=== PATIENT | male | born 1940 | race Caucasian/White ===

== ENCOUNTER 2017-07-27 07:56 | Emergency (ER) | payer MEDICARE, OTHER ==
[~2017-07-27] VITALS: Ht 170.2 cm; Wt 95.3 kg
[2017-07-27] MEDS ORDERED: HYDROMORPHONE 1MG/1ML INJ IM STA (08:34)
[2017-07-27] MEDS ORDERED: ONDANSETRON HCL 4 MG ORAL DISINTEGRATING TAB PO ONE ×2 (08:45→09:30)
[2017-07-27] MEDS ORDERED: CLONIDINE HCL 0.2 MG TAB PO ONE (08:45)
[2017-07-27] MEDS ORDERED: INDOMETHACIN 75 MG CAPCR PO SCH (09:00)
--- NOTE | 2017-07-27 09:03 | Diagnostic Imaging Report ---
PROCEDURE:X-RAY RIGHT FOOT, COMPLETE COMPARISON:None. INDICATIONS:RIGHT FOOT PAIN FINDINGS: No acute, displaced fracture or dislocation. Slight deformities of the second and third metatarsal diaphyses likely reflect sequela of remote trauma. Appropriate alignment between the medial cuneiform and second metatarsal base in keeping with an intact Lisfranc ligament. The joint spaces are well-maintained. Minimal degenerative posterior calcaneal spur. No focal soft tissue abnormalities. CONCLUSION: No acute osseous abnormality. Dictated by: Alexandro Owens M.D. on 07/27/2017 at 9:03 Electronically approved by: Alexandro Owens M.D. on 07/27/2017 at 9:03
[2017-07-27 10:49] VITALS: BP_SYST 176
== END 2017-07-27 11:08 | disposition home or self-care (01) ==
LOC: ER 07:56
DX: M10.9 Gout, unspecified (principal); I10 Essential (primary) hypertension; I25.10 Atherosclerotic heart disease of native coronary artery without angina pectoris; I25.2 Old myocardial infarction; Z98.61 Coronary angioplasty status; Z95.810 Presence of automatic (implantable) cardiac defibrillator
CPT/HCPCS: 73630; 99283; J1170

== ENCOUNTER → 2017-08-25 | Day surgery (SDC) | payer MEDICARE, OTHER ==
[~2017-08-25] MED LIST: AMLODIPINE BESY10 MG PO; ASPIRIN81 MG PO; ATENOLOL50 MG PO; BUMETANIDE1 MG PO; CLONIDINE HCL0.2 MG PO; CLOPIDOGREL75 MG PO; ETODOLAC500 M1 PO; HYDRALAZINE HCL25 MG PO; LIDOCAINE HCL 1% 2 ML AMP ONE; MIDAZOLAM HCL 2 MG/2 ML VIAL ONE; MIRALAX17 GM PO; NITRO PATCH TOP; OMEPRAZOLE40 MG PO; PROPOFOL IV EMULSION 10 MG/ML 50 ML VIAL ONE; ZOLPIDEM TARTRA10 MG PO
--- OUTSIDE RECORDS SUMMARY | 2017-08-25 11:31 | XMS REPORT | Continuity of Care Document ---
Author Author [facility] Organization [facility] Address [address] [place] [place] [address] Phone Unavailable Care Team Providers Care Printer Slotter Helper Name Role Phone LUPE ARRIETA DO PCP Insurance Providers Guarantor Gabe Sylvester Address [address] [place] [address] Email NONE Payer [facility] Policy Number [id number] Subscriber's Name Gabe Sylvester Relationship 18 Self / Same As Patient Group Name RETIRED Advance Directives Directive Response Recorded Date/Time Does the patient have an advance directive? No 03/11/17 8:53am If yes, is advance directive on file with [facility]? No 03/11/17 8:53am If not on file with [facility] will patient provide a copy? No 03/11/17 8:53am Do you have a Directive to Physician? No 07/27/17 9:31am Do you have a Medical Power of Mill Stenciler? No 07/27/17 9:31am Do you have an out of hospital Do Not Resuscitate Order? No 07/27/17 9:31am Do you have any special needs we should be aware of? No 07/27/17 9:31am Do you have a support person here with you today? No 07/27/17 9:31am Did patient receive Notice of Privacy Practices? Yes 07/27/17 9:31am Did patient receive patient rights and responsibilities? Yes 07/27/17 9:31am Problems No problem information available. Medications No medication information available. Social History Smoking Status Start Date Stop Date Never Smoker Hospital Discharge Instructions No hospital discharge instruction information available. Plan of Care Discharge Date 07/27/17 11:08am Disposition HOME, SELF-CARE Condition at Discharge Stable Instructions/Education Provided Dependent Edema Gout Forms Provided Work/School Excuse Prescriptions See Medication Section Referrals LUPE ARRIETA DO Address: [address] [place] [address] ZACKERY DE LUNA DO Address: [address] [place] [address] KELVIN MAXWELL MD Address: [address] [place] [address] Additional Instructions/Education FOLLOW UP WITH YOUR PCP SOON POSSIBLE RESUME ACTIVITY TOLERATED TAKE MEDICATIONS PRESCRIBED: INDOCIN 75 MG, BY MOUTH, TWICE A DAY (60 PILLS) FOR INFLAMMATION, NO REFFILS TRAMADOL 50 MG, BY MOUTH, EVERY 8 HOURS NEEDED FOR PAIN (30 PILLS), NO REFFILS IF SYMPTOMS WORSEN, IF YOU START HAVING CHEST PAIN, FEVER 100.4 NOT RELIEVED BY MEDICATIONS, CONTACT YOUR PHYCISIAN IMMEDIATELY OR GO TO YOUR NEAREST EMERGENCY ROOM. Functional Status No functional status information available. Allergies, Adverse Reactions, Alerts Allergen Type Severity Reaction Status Last Updated Clindamycin Allergy Mild Active 03/11/17 Immunizations No immunization information available. Vital Signs Acute Vital Signs Vital Response Date/Time Temperature (Fahrenheit) 98.7 degrees F (97.6 - 99.5) 07/27/2017 10:49am Pulse Pulse Rate (adult) 61 bpm (60 - 90) 07/27/2017 10:49am Respiratory Rate 18 bpm (12 - 24) 07/27/2017 10:49am Blood Pressure 176/82 mm Hg 03/11/2017 10:15am Height 5 ft 7 in 07/27/2017 7:59am Weight 210 lb 07/27/2017 7:59am Body Mass Index 32.9 kg/m^2 07/27/2017 7:59am Results No relevant diagnostic test, laboratory data and/or discharge summary information available. Procedures No procedure information available. Encounters Encounter Location Arrival/Admit Date Discharge/Depart Date Attending Provider Departed Emergency Room [facility] 07/27/17 7:56am 11:08am CARMEN WILLARD MD Departed Emergency Room [facility] 03/11/17 8:47am 10:25am CARMEN WILLARD MD
--- OUTSIDE RECORDS SUMMARY | 2017-08-25 11:31 | XMS REPORT ---
Author Author [facility] Address Unknown Phone Unavailable Care Team Providers Care Potato Peeling Machine Operator Name Role Phone CARMEN WILLARD Unavailable Unavailable Problems This patient has no known problems. Allergies, Adverse Reactions, Alerts This patient has no known allergies or adverse reactions. Medications This patient has no known medications. Results Test Description Test Time Test Comments Text Results Atomic Results Result Comments FOOT RIGHT COMPLETE [facility] [address] [address] Patient Name: SHAKILA SYLVESTER MR #: [id number] : 1940 Age/Sex: 76/M Req #: [id number] [facility] Physician: Ordered by: CARMEN WILLARD MD Report #: [id number] Location: ER Room/Bed: Procedure: [id number] DX/FOOT RIGHT COMPLETE Exam Date: 07/27/17 Exam Time: 0830 REPORT STATUS: Signed PROCEDURE: X-RAY RIGHT FOOT, COMPLETE COMPARISON: None. INDICATIONS: RIGHT FOOT PAIN FINDINGS: No acute, displaced fracture or dislocation. Slight deformities of the second and third metatarsal diaphyses likely reflect sequela of remote trauma. Appropriate alignment between the medial cuneiform and second metatarsal base in keeping with an intact Lisfranc ligament. The joint spaces are well-maintained. Minimal degenerative posterior calcaneal spur. No focal soft tissue abnormalities. CONCLUSION: No acute osseous abnormality. Dictated by: Francesca Amezcua M.D. on 07/27/2017 at 9:03 Electronically approved by: Francesca Amezcua M.D. on 07/27/2017 at 9:03 Dictated By: FRANCESCA AMEZCUA MD 2 Transcribed By: JESSICA on 07/27/17902 COPY TO: CARMEN WILLARD MD
[2017-08-25 12:11] LABS: BASOPHILS % 0.4 % (0.0-1.0); EOSINOPHILS # (AUTO) 0.1 (0.0-0.4); EOSINOPHILS % 0.9 % (0.0-6.0); HEMATOCRIT 42.6 % (38.2-49.6); HEMOGLOBIN 14.3 g/dL (14.0-18.0); LYMPHOCYTES % 27.1 % (18.0-39.1); MEAN CORPUSCULAR HGB CONC 33.6 g/dL (31-35); MEAN CORPUSCULAR VOLUME 92.4 fL (81-99); MONOCYTES # (AUTO) 0.6 (0.2-0.8); MONOCYTES % 8.3 % (4.4-11.3); NEUTROPHILS # (AUTO) 4.7 (2.1-6.9); PLATELET COUNT 100 x10e3/uL (140-360); RED BLOOD COUNT 4.61 x10e6/uL (4.3-5.7); RED CELL DISTRIBUTION WIDTH 14.2 % (11.7-14.4)
[2017-08-25 12:29] LABS: ANION GAP 15.2 mmol/L (8-16); CALCIUM 9.4 mg/dL (8.4-10.2); CREATININE, SERUM 1.55 mg/dL (0.72-1.25); POTASSIUM 4.2 mmol/L (3.5-5.1)
[2017-08-25 12:41] LABS: ALBUMIN 4.2 g/dL (3.5-5.0); BILIRUBIN,DIRECT 0.5 mg/dL (0.0-0.5)
--- NOTE | 2017-08-25 14:38 | Operative Report ---
DATE OF PROCEDURE: August 25, 2017 REFERRING PHYSICIAN: Dr. Jonn Arrieta PROCEDURES PERFORMED 1. Esophagogastroduodenoscopy with biopsies and esophageal dilatation. 2. Colonoscopy with polypectomy. INDICATIONS FOR EGD: Dysphagia, nausea, heartburn, indigestion. INDICATIONS FOR COLONOSCOPY: Colorectal cancer screening. MEDICATION: Patient was done under MAC. Please see anesthesiologist's note. PROCEDURE: With the patient in the left lateral decubitus position, the flexible fiberoptic Olympus gastroscope was introduced into the esophagus under direct visualization without any difficulty. There was some patchy erythema noted in the distal esophagus. There was a mild stricture noted at the GE junction that was dilated to size 52-Georgian Hummel. The scope was then advanced with ease into the stomach, and mucosa overlying the antrum and the body revealed some diffuse, intense erythema and moderate edema, and biopsies were obtained and sent to stain for H. pylori. Pylorus appeared to be of normal contour and shape. It was intubated with ease, and the scope was advanced all the way to the 2nd portion of the duodenum. The scope was then withdrawn slowly, and mucosa overlying the proximal 2nd portion and the duodenal bulb appeared to be within normal limits. The scope was then withdrawn back into the stomach and retroflexed. Mucosa overlying the fundus and the cardia appeared to be within normal limits. The scope was then straightened out. The stomach was decompressed. Scope was subsequently withdrawn. Patient tolerated the procedure well. IMPRESSION 1. Distal esophagitis. 2. Mild stricture at gastroesophageal junction dilated to size 52-Georgian Hummel. 3. Gastritis, biopsied. Biopsies sent to stain for H. pylori. PLAN: Follow up histology. Initiate Protonix 40 mg 1 p.o. q.a.m. a.c. The patient was then turned around. After adequate lubrication of the anal canal, a flexible fiberoptic Olympus colonoscope was inserted into the rectum with ease and advanced all the way to the cecum. The scope was then withdrawn slowly. Mucosa overlying the cecum, ascending and transverse colon appeared to be within normal limits. Three polyps were snared from the descending colon. Diverticular disease was noted to involve the distal descending and the sigmoid colon. One polyp was hot biopsied from the sigmoid. Rectum appeared to be within normal limits. The scope was then retroflexed into the distal rectum, and small internal hemorrhoids were noted, none of which was actively bleeding, and a single hypertrophied anal papilla. The scope was then straightened out. The rectosigmoid area as well as the distal rectal area were decompressed. Scope was subsequently withdrawn. Patient tolerated the procedure well. IMPRESSION 1. Descending colon polyp times 3, snared. 2. Diverticulosis. 3. Sigmoid colon polyp, hot biopsied. 4. Internal hemorrhoids, none actively bleeding. 5. Hypertrophied anal papilla. PLAN: Follow up histology. Initiate high-fiber, low-fat diet. Initiate high-fiber supplement. Patient will need a followup colonoscopy in 3 years. Job#: [id number] cc:JONN ARRIETA DO
== END | disposition home or self-care (01) ==
LOC: OR 11:28
PROVIDERS: ATTEND Internal Medicine Gastroenterology
DX: Z12.11 Encounter for screening for malignant neoplasm of colon (principal); D12.4 Benign neoplasm of descending colon; K29.50 Unspecified chronic gastritis without bleeding; K22.2 Esophageal obstruction; K20.9 Esophagitis, unspecified; K21.9 Gastro-esophageal reflux disease without esophagitis; K44.9 Diaphragmatic hernia without obstruction or gangrene; K57.30 Diverticulosis of large intestine without perforation or abscess without bleeding; K64.8 Other hemorrhoids; K62.89 Other specified diseases of anus and rectum; K74.60 Unspecified cirrhosis of liver; R03.0 Elevated blood-pressure reading, without diagnosis of hypertension; I48.91 Unspecified atrial fibrillation; I11.0 Hypertensive heart disease with heart failure; I50.9 Heart failure, unspecified; I25.2 Old myocardial infarction; N20.0 Calculus of kidney; Z01.810 Encounter for preprocedural cardiovascular examination; Z01.812 Encounter for preprocedural laboratory examination; Z79.82 Long term (current) use of aspirin; Z68.31 Body mass index [BMI] 31.0-31.9, adult; Z95.810 Presence of automatic (implantable) cardiac defibrillator; Z87.891 Personal history of nicotine dependence
CPT/HCPCS: 36415; 43239; 43450; 45384; 45385; 80048; 80076; 85025; 93005; J2001; J2250; 43235; 45378

== ENCOUNTER 2017-09-20 09:23 | Emergency (ER) | payer MEDICARE ==
[~2017-09-20] VITALS: Ht 170.2 cm; Wt 94.3 kg
[~2017-09-20 09:23] MED LIST changes: -LIDOCAINE HCL 1% 2 ML AMP ONE; -MIDAZOLAM HCL 2 MG/2 ML VIAL ONE; -PROPOFOL IV EMULSION 10 MG/ML 50 ML VIAL ONE
== END 2017-09-20 10:41 | disposition left against medical advice (07) ==
LOC: ER 09:23
DX: K75.81 Nonalcoholic steatohepatitis (NASH) (principal); R18.8 Other ascites; Z79.82 Long term (current) use of aspirin
CPT/HCPCS: 99282

== ENCOUNTER → 2017-11-10 | Outpatient (CLI) | payer MEDICARE, OTHER ==
--- NOTE | 2017-11-10 11:58 | Diagnostic Imaging Report ---
PROCEDURE:SMALL BOWEL SERIES INDICATION:Abdominal bloating; pain COMPARISON:None. TECHNIQUE:Routine single contrast small bowel follow through performed through 60 minutes. Spot images were obtained. Fluoroscopy time: 0.5 minutes. Cumulative air kerma: 26.8 mGy FINDINGS: Small bowel caliber, mucosal contour and transit time are normal. No conspicuous polyp, strictures or fistula. Focal evaluation of a patient reported "knot" in the abdomen is also unremarkable under fluoroscopy, without regional small or large bowel abnormality. CONCLUSION: Normal small bowel follow-through. Dictated by: Blake Loya M.D. on 11/10/2017 at 12:00 Electronically approved by: Blake Loya M.D. on 11/10/2017 at 12:00
== END ==
LOC: DX 07:25
PROVIDERS: ATTEND Internal Medicine Gastroenterology
DX: R10.10 Upper abdominal pain, unspecified (principal); R14.0 Abdominal distension (gaseous)
CPT/HCPCS: 74250

== ENCOUNTER → 2018-04-11 | Outpatient (CLI) | payer MEDICARE ==
[~2018-04-11] MED LIST changes: +DIATRIZOATE MEGL/DIATRIZOA SOD 30 ML BTL PO ONE
--- NOTE | 2018-04-11 13:27 | Diagnostic Imaging Report ---
EXAM: CT of the abdomen and pelvis WITHOUT contrast HISTORY: Pain, left upper quadrant COMPARISON: Images from CT of the abdomen and pelvis July 23, 2008 TECHNIQUE: The abdomen and pelvis were scanned utilizing a multidetector helical scanner. Coronal and sagittal reformats are available. PROTOCOL: Routine IV CONTRAST: None, which limits sensitivity and specificity of evaluation of the soft tissues and vascular structures. ORAL CONTRAST: Dilute Gastrografin RADIATION DOSE: Total DLP: 404.81 mGy*cm Estimated effective dose: (DLP x 0.015 x size factor) Dose modulation, iterative reconstruction, and/or weight based adjustment of the mA/kV was utilized to reduce the radiation dose to as low as reasonably achievable. COMPLICATIONS: None FINDINGS: LOWER THORAX: Stable mild scarring of the left lower lobe. Mild global cardiomegaly. Partially visualized trace pericardial fluid and metallic implanted cardiac lead. HEPATOBILIARY: No definite focal hepatic lesions. No biliary ductal dilatation. A 1 cm noncalcified density at the dependent portion of the neck of the gallbladder. SPLEEN: No splenomegaly. PANCREAS: No focal masses or ductal dilatation. ADRENALS: No discrete adrenal nodule. KIDNEYS/URETERS: No hydronephrosis. A 4 mm nonobstructing calcification at the interpolar region of the left kidney. Multiple bilateral fluid density foci, the majority are at least partially exophytic, the largest 3.3 cm on the right and 4.3 cm on the left. PELVIC ORGANS/BLADDER: The prostate is enlarged, 6 cm (ML). PERITONEUM / RETROPERITONEUM: No free air or fluid. GI TRACT: On limited evaluation of the gastrointestinal tract, no dilation or wall thickening identified. , Which partially limits evaluation. Radiopaque contrast material within the stomach, small bowel, and proximal colon. Prominent sigmoid diverticulosis, without specific evidence of acute diverticulitis. The appendix is normal. LYMPH NODES: No pathologically enlarged lymph nodes. VESSELS: Diffuse scattered atherosclerotic vascular calcifications. BONES: Diffusely decreased mineralization of the osseous structures limits bone detail. Left convex curvature of the lumbar spine. Multilevel vertebral compression fracture deformities, including: Stable at T11, interval approximately 20% compression of T12, stable of L2, stable of L3, interval increased inferior endplate compression deformity of L4. SOFT TISSUES: Unremarkable. IMPRESSION: 1. Colonic diverticulosis. 2. A 4 mm nonobstructing left renal stone. 3. Bilateral renal cysts. 4. A 1 cm noncalcified gallbladder stone versus polyp, a nonemergent follow-up right upper quadrant ultrasound is recommended for further characterization. 5. Osteoporosis with multiple vertebral compression fracture deformities, new/increased during the interim of T12 and L4. Signed by: Dr. Emre Lino D.O., M.M.M. on 04/11/2018 1:24 PM
== END ==
LOC: CT 09:37
PROVIDERS: ATTEND Internal Medicine Gastroenterology
DX: R10.12 Left upper quadrant pain (principal)
CPT/HCPCS: 74176; Q9663

== ENCOUNTER → 2018-04-20 | Outpatient (CLI) | payer MEDICARE ==
[~2018-04-20] MED LIST changes: -DIATRIZOATE MEGL/DIATRIZOA SOD 30 ML BTL PO ONE
--- NOTE | 2018-04-20 14:41 | Diagnostic Imaging Report ---
EXAM: US ABDOMEN COMPLETE DATE: 04/20/2018 11:00 AM INDICATION: Generalized abdominal pain. COMPARISON: None TECHNIQUE: Transverse and longitudinal gomez scale and color doppler sonographic images of the upper abdomen were obtained. FINDINGS: LIVER Measures 13.5 cm in the right midclavicular line. Normal echogenicity of the liver with normal contour, no masses. SPLEEN Measures 11.2 cm in maximum diameter. Normal echogenicity, no masses. GALLBLADDER There is a 1.8 cm echogenic lesion in the gallbladder. The lesion is not mobile and has no demonstrated flow. No evidence of shadowing. No gallbladder wall thickening, distension, or pericholecystic fluid. Negative reported sonographic Ortega's sign. BILE DUCTS No intra nor extra-hepatic biliary dilation. Common bile duct measures 0.4 cm PANCREAS: Visualized portions are normal. RIGHT KIDNEY: Measures 10.3 cm Echogenicity: Normal Collecting System: No hydronephrosis Stones: None Cyst/Mass: No evidence of solid mass. Multiple simple appearing anechoic cysts are noted, including measuring up to 1.9 cm in the superior pole, 2.5 cm in the mid pole, and 3.5 cm in the inferior pole. LEFT KIDNEY: Measures 10.0 cm Echogenicity: Normal Collecting System: No hydronephrosis Stones: There is a 7 mm non-obstructive left renal stone. Cyst/Mass: There is a 3.7 cm simple appearing anechoic cyst in the upper pole. VESSELS: Aorta: Visualized portions are within normal size limits Inferior Vena Cava: Visualized portions are normal Main Portal Vein: Measures 1 cm, normal size with hepatopetal flow. FREE FLUID: None IMPRESSION: A 1.8 cm echogenic lesion in the gallbladder may represent cholelithiasis, with a gallbladder polyp felt to be less likely due to lack of doppler flow. However, a follow-up ultrasound in 6 months is suggested to assess for stability. No sonographic evidence of cholecystitis. A 7 mm non-obstructive left renal stone. Simple appearing bilateral renal cysts. Signed by: Dr. Marco A Reyes MD on 04/20/2018 2:38 PM
== END ==
LOC: US 10:26
PROVIDERS: ATTEND Internal Medicine Gastroenterology
DX: R10.84 Generalized abdominal pain (principal)
CPT/HCPCS: 76700

== ENCOUNTER → 2018-05-03 | Outpatient (CLI) | payer MEDICARE | LOC: NM 12:34 | PROVIDERS: ATTEND Internal Medicine Gastroenterology | DX: R10.84 Generalized abdominal pain (principal) ==

== ENCOUNTER → 2018-08-18 | Day surgery (SDC) | payer MEDICARE ==
[2018-08-17 10:28] LABS: BASOPHILS % 0.3 % (0.0-1.0); EOSINOPHILS # (AUTO) 0.1 (0.0-0.4); HEMATOCRIT 41.3 % (38.2-49.6); HEMOGLOBIN 13.6 g/dL (14.0-18.0); LYMPHOCYTES # (AUTO) 1.2 (1.0-3.2); LYMPHOCYTES % 20.7 % (18.0-39.1); MEAN CORPUSCULAR HEMOGLOBIN 31.7 pg (28-32); MEAN CORPUSCULAR HGB CONC 32.9 g/dL (31-35); MEAN CORPUSCULAR VOLUME 96.3 fL (81-99); MONOCYTES # (AUTO) 0.5 (0.2-0.8); MONOCYTES % 7.9 % (4.4-11.3); NEUTROPHILS # (AUTO) 4.2 (2.1-6.9); NEUTROPHILS % 69.8 % (38.7-80.0); PLATELET COUNT 199 x10e3/uL (140-360); RED BLOOD COUNT 4.29 x10e6/uL (4.3-5.7); RED CELL DISTRIBUTION WIDTH 13.5 % (11.7-14.4)
--- NOTE | 2018-08-17 11:32 | Diagnostic Imaging Report ---
EXAM: CHEST 2 VIEWS, PA and lateral DATE: 08/17/2018 Time stamp on exam: 10:15 AM INDICATION: Preoperative COMPARISON: None FINDINGS: LINES/TUBES: Dual lead cardiac device overlies the left chest. LUNGS: No consolidations or edema. PLEURA: Tiny bilateral pleural effusions. HEART AND MEDIASTINUM: Heart is mildly enlarged. BONES AND SOFT TISSUES: No acute findings. IMPRESSION: Cardiomegaly with tiny bilateral pleural effusions. Signed by: Dr. Homar Reyes DO on 08/17/2018 11:29 AM
--- NOTE | 2018-08-17 12:51 | Diagnostic Imaging Report ---
EXAM: ABDOMEN-1VIEW (KUB) DATE: 08/17/2018 10:03 AM INDICATION: Left kidney stone COMPARISON: None FINDINGS: 2 supine views of the abdomen show a normal distribution of air in the small and large bowel. Intracardiac leads are noted. No calcifications are seen projected on either kidney, along the expected course of either ureter or the urinary bladder. Small and even moderate calcifications might be obscured by overlying bowel or bone. There is a rounded calcification compatible with phleboliths in the left hemipelvis. There are degenerative changes in the lumbar spine. IMPRESSION: 1. No bowel dilatation or evidence for bowel obstruction. 2. No urinary tract calculus is identified. Signed by: Dr. Ld Zhong M.D. on 08/17/2018 12:47 PM
[~2018-08-18] MED LIST changes: +AMBIEN10 MG PO; +CEFTRIAXONE SOD 1 GM/NS 50 ML 50 ML IV ONE; +DEXAMETHASONE SOD PHOS INJ 4 MG/ML VIAL ONE; +FENTANYL CITRATE/PF 100MCG/2 ML INJ ONE; +LIDOCAINE HCL 2% LOCAL INJ 5 ML SDV VIAL INJ ONE; +ONDANSETRON HCL INJ 2MG/ML 2ML 2 MG/ML VIAL ONE; +PHENYLEPHRINE HCL 1% 10 MG/ML VIAL ONE; +PLAVIX75 MG PO; +PROPOFOL IV EMULSION 10 MG/ML 20 ML VIAL ONE; +SEVOFLURANE INHAL SOLN 250 ML PEN BTL ONE; +ZESTRIL20 MG PO
[2018-08-18 08:15] VITALS: BP 126/66
--- NOTE | 2018-08-18 16:56 | Operative Report ---
DATE OF PROCEDURE: 08/18/2018 SURGEON: Gonzalo Moreau MD PREOPERATIVE DIAGNOSIS: Left kidney stone. POSTOPERATIVE DIAGNOSIS: Left kidney stone. PROCEDURE: Staged shock wave lithotripsy, left side. ANESTHESIA: General. ESTIMATED BLOOD LOSS: Minimal. COMPLICATIONS: None. INDICATIONS: Mr. Roe is a very pleasant 77-year-old male with a history of left kidney stone. He and I had a long discussion about alternatives, risks, and benefits of doing nothing, shock wave lithotripsy, ureteroscopy, percutaneous surgery, and open surgery. He voiced understanding of the options, alternatives, risks, and benefits and he elected to proceed. PROCEDURE IN DETAIL: After informed consent was obtained, the patient was taken to the operative suite, placed on supine on the operating table. He underwent general anesthesia by the service. Stone was localized in X, Y and Z planes. Shocks were delivered per the treatment report. During the procedure, the patient had a run of V-tach, which continued even after shocking stopped for approximately 20 to 30 beats. Full details per the Anesthesia report. He did tolerate the procedure well and was transported to the recovery room in excellent condition with no untoward effects noted and good fragmentation of the stone seen. MD SEBASTIAN Fermin/MODL /[id number] MTDD
== END | disposition home or self-care (01) ==
LOC: OR 05:05
PROVIDERS: ATTEND Urology
DX: N20.0 Calculus of kidney (principal); I47.2 Ventricular tachycardia; I25.10 Atherosclerotic heart disease of native coronary artery without angina pectoris; I11.0 Hypertensive heart disease with heart failure; I50.9 Heart failure, unspecified; I25.2 Old myocardial infarction; Z88.6 Allergy status to analgesic agent; Z88.8 Allergy status to other drugs, medicaments and biological substances; Z01.810 Encounter for preprocedural cardiovascular examination; Z01.812 Encounter for preprocedural laboratory examination; Z01.818 Encounter for other preprocedural examination; Z79.02 Long term (current) use of antithrombotics/antiplatelets; Z79.82 Long term (current) use of aspirin; Z95.810 Presence of automatic (implantable) cardiac defibrillator; Z87.891 Personal history of nicotine dependence
CPT/HCPCS: 36415; 50590; 71046; 74018; 85025; 93005; J0696; J1100; J2001; J2370; J2405; J2704

== ENCOUNTER 2020-01-13 10:57 | Emergency (ER) | payer MEDICARE, OTHER ==
[~2020-01-13] VITALS: Ht 170.2 cm; Wt 80.7 kg
[~2020-01-13 10:57] MED LIST changes: -CEFTRIAXONE SOD 1 GM/NS 50 ML 50 ML IV ONE; -DEXAMETHASONE SOD PHOS INJ 4 MG/ML VIAL ONE; -FENTANYL CITRATE/PF 100MCG/2 ML INJ ONE; -LIDOCAINE HCL 2% LOCAL INJ 5 ML SDV VIAL INJ ONE; -ONDANSETRON HCL INJ 2MG/ML 2ML 2 MG/ML VIAL ONE; -PHENYLEPHRINE HCL 1% 10 MG/ML VIAL ONE; -PROPOFOL IV EMULSION 10 MG/ML 20 ML VIAL ONE; -SEVOFLURANE INHAL SOLN 250 ML PEN BTL ONE
--- NOTE | 2020-01-13 12:09 | Emergency Department Note ---
History of Present Illnes History of Present Illness Chief Complaint: Abdominal Complaints History of Present Illness This is a 79 year old male that has felt generalized weakness, nonfocal for approximately one week. Patient also has been feeling nauseous, no episodes of emesis. Patient denies any chest pain shortness of breath fever. Denies any cough. Patient does have sick contacts, his has similar symptoms. . Historian: Patient Arrival Mode: Car Onset (how long ago): week(s) (1) Quality: ache Radiation: Reports non-radiation Severity: moderate Onset quality: gradual Duration (how long): week(s) (1) Timing of current episode: constant Progression: waxing and waning Chronicity: new Context: Denies recent illness, Denies recent surgery, Denies recent immobilization Relieving factors: none Exacerbating factors: none Associated symptoms: Reports malaise, Reports weakness; Denies confusion, Denies chest pain, Denies cough, Denies diaphoresis, Denies fever/chills, Denies headaches, Denies loss of appetite, Denies rash, Denies seizure, Denies shortness of breath, Denies syncope Treatments prior to arrival: none Past Medical/Family History Physician Review I have reviewed the patient's past medical and family history. Any updates have been documented here. Past Medical History Past Medical History: Hypertension, CHF, [place] Other Medical History: GOUT INSOMNIA Other Surgery: PACER MAKER/DEFIB Other Last Tetanus: UNKNOWN Review of Systems Review of Systems Constitutional: Reports as per HPI EENTM: Reports no symptoms Cardiovascular: Reports no symptoms Respiratory: Reports no symptoms Gastrointestinal: Reports as per HPI Genitourinary: Reports no symptoms Musculoskeletal: Reports as per HPI Integumentary: Reports no symptoms Neurological: Reports as per HPI Psychological: Reports no symptoms Endocrine: Reports no symptoms Hematological/Lymphatic: Reports no symptoms Review of other systems: All other systems negative Physical Exam Related Data Allergies: Coded Allergies: sucralfate (Verified Allergy, Intermediate, "MAKES ME SICK", 09/20/17) clindamycin (Verified Allergy, Mild, 09/20/17) acetaminophen (Verified Allergy, Unknown, 09/20/17) Physical Exam CONSTITUTIONAL Constitutional: Present well-developed, Present well-nourished HENT HENT: Present normocephalic, Present atraumatic, Present oropharynx clear/moist, Present nose normal HENT L/R: Present left ext ear normal, Present right ext ear normal EYES Eyes: Reports PERRL, Reports conjunctivae normal NECK Neck: Present ROM normal PULMONARY Pulmonary: Present effort normal, Present breath sounds normal CARDIOVASCULAR Cardiovascular: Present regular rhythm, Present heart sounds normal, Present capillary refill normal, Present normal rate GASTROINTESTINAL Abdominal: Present soft, Present nontender, Present bowel sounds normal GENITOURINARY Genitourinary: Present exam deferred SKIN Skin: Present warm, Present dry MUSCULOSKELETAL Musculoskeletal: Present ROM normal NEUROLOGICAL Neurological: Present alert, Present oriented x 3, Present no gross motor or sensory deficits PSYCHOLOGICAL Psychological: Present mood/affect normal, Present judgement normal Assessment & Plan Medical Decision Making MDM Patient's a 79-year-old male that is here for generalized weakness, no shortness of breath, no chest pain, no fever. Patient does have sick contacts, his , high likelihood of having the same thing, likely having viral infection or covid 19. We will check electrolytes, cardiac markers, no source of infection at this time. EKG shows paced rhythm, rate of 60, normal axis, narrow QRS. No ST elevation. 1317 patient continues in no acute distress, explained potential diagnosis to family member in regards to concern for Covid infection. Patient also has mild elevated lipase but no abdominal pain. Patient again with no abdominal pain at all, abdomen reassessed. Assessment & Plan Final Impression: (1) Generalized weakness Depart Disposition: HOME, SELF-nursing home Meds Active Scripts Metoclopramide Hcl (REGLAN) 10 Mg Tablet, 10 MG PO Q6HR PRN for nausea, #20 TAB Prov:CHERELLE PAGAN MD 01/13/20 Reported Medications Zolpidem Tartrate (AMBIEN) 10 Mg Tablet, 10 MG PO HS PRN for INSOMNIA, #30 TAB 08/18/18 Clopidogrel Bisulfate* (PLAVIX) 75 Mg Tablet, 75 MG PO DAILY, #30 TAB 08/18/18 Aspirin (ASPIRIN) 81 Mg Tab.chew, 81 MG PO DAILY 08/18/18 Lisinopril* (ZESTRIL*) 20 Mg Tablet, 20 MG PO BID 08/17/18 Hydralazine Hcl (HYDRALAZINE HCL) 25 Mg Tab, 50 MG PO TID, TAB 08/24/17 Clonidine Hcl (CLONIDINE HCL) 0.2 Mg Tablet, 0.2 MG PO BID 08/24/17 Amlodipine Besylate (AMLODIPINE BESYLATE) 10 Mg Tablet, 10 MG PO DAILY, #30 TAB 08/24/17 Atenolol (ATENOLOL) 50 Mg Tablet, 50 MG PO HS 08/24/17 CHERELLE PAGAN MD Jan 13, 2020 12:09
[2020-01-13 12:11] LABS: BASOPHILS % 0.4 % (0.0-1.0); HEMATOCRIT 40.9 % (38.2-49.6); HEMOGLOBIN 13.6 g/dL (14.0-18.0); LYMPHOCYTES # (AUTO) 1.5 (1.0-3.2); LYMPHOCYTES % 29.2 % (18.0-39.1); MEAN CORPUSCULAR HEMOGLOBIN 30.6 pg (28-32); MEAN CORPUSCULAR HGB CONC 33.3 g/dL (31-35); MEAN CORPUSCULAR VOLUME 91.9 fL (81-99); MONOCYTES # (AUTO) 0.8 (0.2-0.8); MONOCYTES % 14.5 % (4.4-11.3); NEUTROPHILS # (AUTO) 2.9 (2.1-6.9); NEUTROPHILS % 55.3 % (38.7-80.0); PLATELET COUNT 144 x10e3/uL (140-360); RED BLOOD COUNT 4.45 x10e6/uL (4.3-5.7)
--- OUTSIDE RECORDS SUMMARY | 2020-01-13 12:18 | XMS REPORT | Continuity of Care Document ---
Author Author [facility] t Organization [facility] Address [address] [place] [address] Phone Unavailable Care Team Providers Care Cash Accounting Clerk Name Role Phone LUPE ARRIETA DO PCP SAMUEL FONTENOT Attphys Unavailable SARAH MAXWELL Attphys Unavailable Joni WILLARD Attphys Unavailable Payers Payer Name Policy Type Policy Number Effective Date Expiration Date S the neuromedical centertoo [facility] [id number] 2015 00:00:00 [facility] Problems This patient has no known problems. Allergies, Adverse Reactions, Alerts Allergy Name Allergy Type Status Severity Reaction(s) Onset Date Inacti ve Date Treating Clinician Comments Source Sucralfate Allergy to Substance Active Moderate "MAKES ME SICK" 2017-09-20 00:00:00 [facility] Acetaminophen Allergy to Substance Active 2017-09-20 00:00: 00 [facility] Clindamycin Allergy to Substance Active Mild 2017-09-20 00:00:00 [facility] No Known Allergies DA Active U 2011-05-28 00:00:00 [facility] Medications Ordered Medication Name Filled Medication Name Start Date Stop Da te Current Medication? Ordering Clinician Indication Dosage Frequency Signature (SIG) Comments Components Source Amlodipine Besylate 10 Mg Tablet Amlodipine Besylate 10 Mg Tablet Yes 10 Daily [facility] Aspirin 81 Mg Tab.chew Aspirin 81 Mg Tab.chew Yes 81 Daily [facility] Atenolol 50 Mg Tablet Atenolol 50 Mg Tablet Yes 50 Daily [facility] Bumetanide 1 Mg Tablet Bumetanide 1 Mg Tablet Yes 1 Twice A Day [facility] Clonidine Hcl 0.2 Mg Tablet Clonidine Hcl 0.2 Mg Tablet Yes .2 Twice A Day [facility] Clopidogrel Bisulfate (Clopidogrel) 75 Mg Tablet Clopi dogrel Bisulfate (Clopidogrel) 75 Mg Tablet Yes 75 Daily [facility] Hydralazine Hcl 25 Mg Tab Hydralazine Hcl 25 Mg Tab Yes 50 Twice A Day [facility] Nitro Patch Nitro Patch Yes .4 12 Hrs On/12 Off [facility] Omeprazole 40 Mg Capsule. Omeprazole 40 Mg Capsule. Yes 40 Daily [facility] Polyethylene Glycol 3350 (Miralax) 17 Gm Powd.pack Tj yethylene Glycol 3350 (Miralax) 17 Gm Powd.pack Yes 1 Daily [facility] Zolpidem Tartrate 10 Mg Tablet Zolpidem Tartrate 10 Mg Tablet Yes 10 Bedtime [facility] Etodolac 500 Mg Tab.er.24h, 500 Mg Oral Etodolac 500 Mg Tab. er.24h, 500 Mg Oral 2017-08-25 00:00:00 No 500 Twice A Day [facility] Procedures Procedure Date / Time Performed Performing Clinician Souraleena e EGD BIOPSY SINGLE/MULTIPLE 2017-08-25 00:00:00 SARAH MAXWELL [facility] DILATE ESOPHAGUS 1/MULT PASS 2017-08-25 00:00:00 SARAH MAXWELL [facility] COLONOSCOPY W/LESION REMOVAL 2017-08-25 00:00:00 SARAH MAXWELL [facility] COLONOSCOPY W/LESION REMOVAL 2017-08-25 00:00:00 SARAH MAXWELL [facility] Encounters Start Date/Time End Date/Time Encounter Type Admission Type Attendi [facility] Care Department Encounter ID Source 2017-09-20 09:23:00 2017-09-20 10:41:00 Departed Emergency Room [facility] [id number] [facility]. [facility] 2017-08-25 11:28:00 2017-08-25 11:28:00 Registered Surgical Day Care [facility] [id number] [facility]. [facility] 2017-07-27 07:56:00 2017-07-27 11:08:00 Departed Emergency Room ER CARMEN WILLARD [facility] [id number] [facility] 2017-03-11 08:47:00 2017-03-11 10:25:00 Departed Emergency Room [facility] [id number] [facility] Patients [facility] Results Test Description Test Time Test Comments Results Result Comments Source COMPREHENSIVE METABOLIC PANEL 2019-07-18 08:36:00 Test Item SODIUM (test code = NA) 143 mmol/L 136-145 N POTASSIUM (test code = K) 4.5 mmol/L 3.5-5.1 N CHLORIDE (test code = CL) 110.0 mmol/L 98-107 H CARBON DIOXIDE (test code = CO2) 26.0 mmol/L 21-32 N ANION GAP (test code = GAP) 11.5 10-20 N GLUCOSE (test code = GLU) 165 mg/dL 74-106 H BLOOD UREA NITROGEN (test code = BUN) 31 mg/dL 7-18 H GLOMERULAR FILTRATION RATE (test code = GFR) 37 mL/min >=60 Estimated GFR by using Modified MDRD formula.Chronic kidney disease is defined as either kidney damageor GFR <60 mL/min/1.73 m2 for >3 months. CREATININE (test code = CREAT) 1.80 mg/dL 0.7-1.3 H BUN/CREATININE RATIO (test code = BUN/CREA) 17.2 10-20 N TOTAL PROTEIN (test code = PROT) 7.1 gram/dL 6.4-8.2 N ALBUMIN (test code = ALB) 3.6 g/dL 3.4-5.0 N GLOBULIN (test code = GLOB) 3.5 gram/dL 2.7-4.2 N ALBUMIN/GLOBULIN RATIO (test code = A/G) 1.0 0.75-1.50 N CALCIUM (test code = CA) 9.0 mg/dL 8.5-10.1 N BILIRUBIN TOTAL (test code = BILT) 0.60 mg/dL 0.0-1.0 N SGOT/AST (test code = AST) 27 IUnit/L 15-37 N SGPT/ALT (test code = ALT) 45 IUnit/L 12-78 N ALKALINE PHOSPHATASE TOTAL (test code = ALKP) 92 IUnit/L 45-117 N Note change in reference range due to change in reagent. LIPID PROFILE (CORONARY RISK)2019-07-18 08:36:00* Test Item Value Reference Range Interpretation Comments TRIGLYCERIDES (test code = TRIG) 48 mg/dL 20-150 N CHOLESTEROL (test code = CHOL) 153 mg/dL 0-200 N CHOLESTEROL/HDL RATIO (test code = CHOLHDL) 3.0 RATIO 0-4.9 N RISK ASSOCIATED WITH CHOL/HDL RATIOS: Risk Male Female1/2 AVERAGE 3.43 3.27AVERAGE 4.97 4.442X AVERAGE 9.55 7.053X AVERAGE 23.39 11.04 REFERENCE VALUE IS RELATED TO RISK LEVELS ASRECOMMENDED BY THE DI. HEART, LUNG, AND BLOOD INST. HDL CHOLESTEROL (test code = HDL) 49 mg/dL 40-60 N LIPOPROTEIN LDL (test code = LDL) 92 mg/dL 100-129 L Reference Interval: mg/dL mmol/L Optimal <100 <2.6Near/above optimal 100-129 2.6- 3.3Borderline High 130-159 3.4-4.1High 160-189 4.1-4.9Very High >=190 >=4.9========= This LDL result is a direct measurement.========= THYROID STIMULATING [id number] 08:36:00* Test Item Value Reference Range Interpretation Comments THYROID STIMULATING HORMONE (test code = TSH) 1.430 uIU/mL 0.36-3.7 4 N TSH REFERENCE RANGES: EUTHYROID: 0.35 - 4.3 mIU/mL HYPO : > 5.5 mIU/mL HYPER : < 0.35 mIU/mL COMPREHENSIVE METABOLIC [id number] 08:21:00* Test Item Value Reference Range Interpretation Comments SODIUM (test code = NA) 143 mmol/L 136-145 N POTASSIUM (test code = K) 4.5 mmol/L 3.5-5.1 N CHLORIDE (test code = CL) 110.0 mmol/L 98-107 H CARBON DIOXIDE (test code = CO2) mmol/L 21-32 ANION GAP (test code = GAP) 10-20 GLUCOSE (test code = GLU) mg/dL 74-106 BLOOD UREA NITROGEN (test code = BUN) mg/dL 7-18 GLOMERULAR FILTRATION RATE (test code = GFR) mL/min >=60 CREATININE (test code = CREAT) mg/dL 0.7-1.3 BUN/CREATININE RATIO (test code = BUN/CREA) 10-20 TOTAL PROTEIN (test code = PROT) gram/dL 6.4-8.2 ALBUMIN (test code = ALB) g/dL 3.4-5.0 GLOBULIN (test code = GLOB) gram/dL 2.7-4.2 ALBUMIN/GLOBULIN RATIO (test code = A/G) 0.75-1.50 CALCIUM (test code = CA) mg/dL 8.5-10.1 BILIRUBIN TOTAL (test code = BILT) mg/dL 0.0-1.0 SGOT/AST (test code = AST) IUnit/L 15-37 SGPT/ALT (test code = ALT) IUnit/L 12-78 ALKALINE PHOSPHATASE TOTAL (test code = ALKP) IUnit/L 45-117 LIPID PROFILE (CORONARY RISK)2019-07-18 08:21:00* Test Item Value Reference Range Interpretation Comments TRIGLYCERIDES (test code = TRIG) mg/dL 20-150 CHOLESTEROL (test code = CHOL) mg/dL 0-200 CHOLESTEROL/HDL RATIO (test code = CHOLHDL) RATIO 0-4.9 HDL CHOLESTEROL (test code = HDL) mg/dL 40-60 LIPOPROTEIN LDL (test code = LDL) mg/dL 100-129 THYROID STIMULATING [id number] 08:21:00* Test Item Value Reference Range Interpretation Comments THYROID STIMULATING HORMONE (test code = TSH) uIU/mL 0.36-3.7 4 PROTHROMBIN [id number] 08:05:00* Test Item Value Reference Range Interpretation Comments PROTHROMBIN TIME PATIENT (test code = PTP) 12.9 seconds 9.0-14.0 N INTERNATIONAL NORMAL RATIO (test code = INR) 1.1 0.8-1.2 N The therapeutic range for oral anticoagulant therapy formost indications is an international normalized ratio (INR)of between 2.0 and 3.0. The recommended therapeutic INRrange for various clinical situations is listed below: Clinical Situation INR range Pulmonary e mbolism treatment (2.0-3.0)Venous thrombosis treatmentVenous thrombosis prophylaxis (high risk surgery)Prevention of systemic embolism from: Acute myocardial infarction Valvular heart disease Atrial fibrillation Mechanical prosthetic heart valves (2.5-3.5) LAB-V.LAB.[facility] 07/17/19 0840THROMBOPLASTIN TIME [id number] 08:05:00* Test Item Value Reference Range Interpretation Comments THROMBOPLASTIN TIME PARTIAL (test code = PTT) 31.5 seconds 25.0-36. 5 N LAB-V.LAB.[facility] 07/17/19 0840CBC W/AUTO [id number] 07:57:00* Test Item Value Reference Range Interpretation Comments WHITE BLOOD CELL (test code = WBC) 7.5 K/mm3 4.5-12.5 N RED BLOOD CELL (test code = RBC) 4.12 mill/mm3 4.0-5.8 N HEMOGLOBIN (test code = HGB) 12.8 gram/dL 13.0-17.5 L HEMATOCRIT (test code = HCT) 39.6 % 42.0-52.0 L MEAN CELL VOLUME (test code = MCV) 96.1 fL 80-98 N MEAN CELL HGB (test code = MCH) 31.1 picogram 27.0-33.0 N MEAN CELL HGB CONCETRATION (test code = MCHC) 32.3 gram/dL 33.0-36. 0 L RED CELL DISTRIBUTION WIDTH (test code = RDW) 13.4 % 11.6-16. 2 N RED CELL DISTRIBUTION WIDTH SD (test code = RDW-SD) 47.5 fL 37 .0-51.0 N PLATELET COUNT (test code = PLT) 162 K/mm3 150-450 N MEAN PLATELET VOLUME (test code = MPV) 9.9 fL 6.7-11.0 N NEUTROPHIL % (test code = NT%) 86.2 % 39.0-69.0 H IMMATURE GRANULOCYTE % (test code = IG%) 0.5 % 0.0-5.0 N LYMPHOCYTE % (test code = LY%) 10.1 % 25.0-55.0 L MONOCYTE % (test code = MO%) 3.1 % 0.0-10.0 N EOSINOPHIL % (test code = EO%) 0.0 % 0.0-5.0 N BASOPHIL % (test code = BA%) 0.1 % 0.0-1.0 N NUCLEATED RBC % (test code = NRBC%) 0.0 % 0-0 N NEUTROPHIL # (test code = NT#) 6.49 K/mm3 1.8-7.7 N IMMATURE GRANULOCYTE # (test code = IG#) 0.04 x10 3/uL 0-0.03 H LYMPHOCYTE # (test code = LY#) 0.76 K/mm3 1.0-5.0 L MONOCYTE # (test code = MO#) 0.23 K/mm3 0-0.8 N EOSINOPHIL # (test code = EO#) 0.00 K/mm3 0.0-0.5 N BASOPHIL # (test code = BA#) 0.01 K/mm3 0.0-0.2 N NUCLEATED RBC # (test code = NRBC#) 0.00 K/mm3 0.0-0.1 N LAB-V.LAB.CT 07/17/19 0839- XR CHEST 2 [id number] 08:42:00 FAX: Oscar Cotto [phone] [place]: O St: PRE FAX: Charly Estrada [phone] Name: SHAKILA SYLVESTER [facility] : 1940 Age/S: 78/M [address] [facility] Unit #: [id number] [place]: [place] [address] Phys: Oscar Woo MD Acct: [id number] Dis Date: Status: PRE SDC PHONE #: [phone] Exam Date: 07/17/2019 0840 FAX #: [phone] Reason: PRE OP EXAMS: CPT CODE: [id number] XR CHEST 2 V 38798 REASON FOR EXAM: PRE OP Exam Order Date: 8:32 AM Ordering M.D.: Oscar Woo MD PROCEDURE: - XR CHEST 2 V COMPARISON: Chest x-ray May 28 011 FINDINGS: The lungs are hyperinflated but clear. Ther e is no pleural effusion or pneumothorax. Pulmonary vascularity is within normal limits. Cardiomediastinal silhouette is enlarged but stable in size. Left subclavian ICD/pacemaker is present with leads in the right atrium and right ventricle. There are degenerative changes in the spine. The visualized upper abdomen is within normal limits . IMPRESSION: Hyperinflation of the bilateral shivani ngs may represent an air-trapping process. However the lungs are clear. Location: [facility] at 0842 Reported and signed by: Kaleb Sabillon MD CC: Oscar Woo MD; Charly Chamorro MD Te chnologist: AURELIO GARCIA RT (R) Trnscrd Date/ Time/By: 07/17/2019 (0842) : By: [email or web address] Orig Print D/T: S: 07/17/19 20 (0845) PAGE 1 Signed Report ABDOMEN-1VIEW (KUB)2018-08-17 12:44:00 [place] [address] Patient Name: SHAKILA SYLVESTER MR #: [id number] : 1940 Age/Sex: 77/M Req #: [id number] Adm Physician: Ordered by: SAMUEL FONTENOT MD Report #: [id number] Location: OR Room/Bed: Procedure: [id number] DX/ABDOMEN-1VIEW (KUB) Exam Date: 08/17/18 Exam Max e: 1020 REPORT STATUS: Signed EX AM: ABDOMEN-1VIEW (KUB) DATE: 08/17/2018 10:03 AM INDICATION: Left ki dney stone COMPARISON: None FINDINGS: 2 supine views of the abdo men show a normal distribution of air in the small and large bowel. Intracardi ac leads are noted. No calcifications are seen projected on either kidney, along the expected course of either ureter or the urinary bladder. Small and e kavya moderate calcifications might be obscured by overlying bowel or bone. Ther e is a rounded calcification compatible with phleboliths in the left hemipelvi s. There are degenerative changes in the lumbar spine. IMPRESSION: 1. No bowel dilatation or evidence for bowel obstruction. 2. No urinary t ract calculus is identified. Signed by: Dr. Ld Zhong M.D. on 08/17/2018 12:47 PM Dictated By: LD ZHONG MD 1247 Transcribed By: STEFANO on 08/17/18 124 COPY TO: SAMUEL FONTENOT MD CHEST 2 [id number] 11:27:00 [place] [address] Patient Name: SHAKILA SYLVESTER MR #: [id number] : 1940 Age/Sex: 77/M Req #: [id number] Adm Physician: Ordered by: SAMUEL FONTENOT MD Report #: [id number] Location: OR Room/Bed: Procedure: [id number] DX/CHEST 2 VIEWS Exam Date: 08/17/18 Exam Time: 1020 REPORT STATUS: Signed EXAM: CH EST 2 VIEWS, PA and lateral DATE: 08/17/2018 Time stamp on exam: 10:15 AM LENNY CATION: Preoperative COMPARISON: None FINDINGS: LINES/TUBES: Dual lead cardiac device overlies the left chest. LUNGS: No consolidations or edema. PLEURA: Tiny bilateral pleural effusions. HEART AND MEDIASTINUM: Heart is mildly enlarged. BONES AND SOFT TISSUES: No acute findings. IMPR ESSION: Cardiomegaly with tiny bilateral pleural effusions. S igned by: Dr. Homar Tillman DO on 08/17/2018 11:29 AM Dictated By: HOMAR BARRY DO 1129 Transcri bed By: STEFANO on 08/17/18 1129 COPY TO: SAMUEL FONTENOT MD US ABDOMEN [id number] 13:26:[address] [place], [place] [address] Patient Name: SHAKILA SYLVESTER MR #: [id number] : 1940 Age/Sex: 77/M Req #: [id number] Adm Physician: Ordered by: SARAH MAXWELL MD Report #: [id number] Location: US Room/Bed: Procedure: [id number] US/US ABDOMEN COMPLETE Exam Date: 04/20/18 Exam Max e: 1109 REPORT STATUS: Signed EX AM: US ABDOMEN COMPLETE DATE: 04/20/2018 11:00 AM INDICATION: Generalized abdominal pain. COMPARISON: None TECHNIQUE: Transverse and longitudinal g ray scale and color doppler sonographic images of the upper abdomen were obtai dhara. FINDINGS: LIVER Measures 13.5 cm in the right midclavicular line . Normal echogenicity of the liver with normal contour, no masses. SPLEEN Measures 11.2 cm in maximum diameter. Normal echogenicity, no masses. GALLBLADDER There is a 1.8 cm echogenic lesion in the gallbladder. The lesion is not mobile and has no demonstrated flow. No evidence of shadowing. No gallb ladder wall thickening, distension, or pericholecystic fluid. Negative report ed sonographic Ortega's sign. BILE DUCTS No intra nor extra-hepatic sergio iary dilation. Common bile duct measures 0.4 cm PANCREAS: Visualized port ions are normal. RIGHT KIDNEY: Measures 10.3 cm Echogenicity: Normal Co llecting System: No hydronephrosis Stones: None Cyst/Mass: No evidence of solid mass. Multiple simple appearing anechoic cysts are noted, including kristen uring up to 1.9 cm in the superior pole, 2.5 cm in the mid pole, and 3.5 cm in the inferior pole. LEFT KIDNEY: Measures 10.0 cm Echogenicity: Normal Collecting System: No hydronephrosis Stones: There is a 7 mm non-obstructive left renal stone. Cyst/Mass: There is a 3.7 cm simple appearing anechoic cyst in the upper pole. VESSELS: Aorta: Visualized portions are within normal size limits Inferior Vena Cava: Visualized portions are normal Main Portal Vein: Measures 1 cm, normal size with hepatopetal flow. FREE FLUID: None IMPRESSION: A 1.8 cm echogenic lesion in the gallbladder may represent c holelithiasis, with a gallbladder polyp felt to be less likely due to lack of doppler flow. However, a follow-up ultrasound in 6 months is suggested to asse ss for stability. No sonographic evidence of cholecystitis. A 7 mm non-obstructive left renal stone. Simple appearing bilateral renal cysts. Signed by: Dr. Jose Boyle MD on 04/20/2018 2:38 PM Dictated By: RANDALL BOYLE MD 1438 Transcrib ed By: STEFANO on 04/20/18 1438 COPY TO: SARAH MAXWELL MD CT ABDOMEN/PELVIS [id number] 13:05:00 [place] [address] Patient Name: SR SHAKILA SYLVESTER MR #: [id number] : 1940 Age/Sex: 77/M Req #: [id number] Adm Physician: Ordered by: SARAH MAXWELL MD Report #: [id number] Location: CT Room/Bed: Procedure: 1030-[address]/CT ABDOMEN/PELVIS WO Exam Date: 04/11/18 Exam Time: 1050 REPORT STATUS: Signed EXAM: CT of the abdomen and pelvis WITHOUT contrast HISTORY: Pain, left upper quadrant COMPARISON: Images from CT of the abdomen and pelvis July 23, 2008 TECHNIQUE: The abdomen and pelvis were scanned utilizing a [facility] tidetector helical scanner. Coronal and sagittal reformats are available. PROTOCOL: Routine IV CONTRAST: None, which limits s ensitivity and specificity of evaluation of the soft tissues and vascular stru ctures. ORAL CONTRAST: Dilute Gastrografin RADIATIO N DOSE: Total DLP: 404.81 mGy*cm Estimated effective dos e: (DLP x 0.015 x size factor) Dose modulation, iterative reconstructio n, and/or weight based adjustment of the mA/kV was utilized to reduce the radi ation dose to as low as reasonably achievable. COMPLICATIONS: No ne FINDINGS: LOWER THORAX: Stable mild scarring of the left lower lobe. M ild global cardiomegaly. Partially visualized trace pericardial fluid and meta llic implanted cardiac lead. HEPATOBILIARY: No definite focal hepatic lesions. No biliary ductal dilatation. A 1 cm noncalcified density at the dependent portion of the neck of the gallbladder. SPLEEN: No splenomegaly. PANCREAS: No focal masses or ductal dilatation. ADRENALS: No discrete adrenal nodule. KIDNEYS/URETERS: No hydronephrosis. A 4 mm nonobstructing calci fication at the interpolar region of the left kidney. Multiple bilateral flu id density foci, the majority are at least partially exophytic, the largest 3. 3 cm on the right and 4.3 cm on the left. PELVIC ORGANS/BLADDER: The prosta te is enlarged, 6 cm (ML). PERITONEUM / RETROPERITONEUM: No free air or flu id. GI TRACT: On limited evaluation of the gastrointestinal tract, no dilation or wall thickening identified. , Which partially limits evaluation. Radiopaq ue contrast material within the stomach, small bowel, and proximal colon. Pr ominent sigmoid diverticulosis, without specific evidence of acute diverticuli tis. The appendix is normal. LYMPH NODES: No pathologically enlarged lymph nodes. VESSELS: Diffuse scattered atherosclerotic vascular calcifications. BONES: Diffusely decreased mineralization of the osseous structures limits candelario ne detail. Left convex curvature of the lumbar spine. Multilevel vertebral co mpression fracture deformities, including: Stable at T11, interval approximate ly 20% compression of T12, stable of L2, stable of L3, interval increased infe rior endplate compression deformity of L4. SOFT TISSUES: Unremarkable. IM PRESSION: 1. Colonic diverticulosis. 2. A 4 mm nonobstructing left renal stone. 3. Bilateral renal cysts. 4. A 1 cm noncalcified gallbladder stone versus polyp, a nonemergent follow-up right upper quadrant ultrasound is hernandez mmended for further characterization. 5. Osteoporosis with multiple vertebral compression fracture deformities, new/increased during the interim of T12 and L4. Signed by: Javon LopesOIndira, M.M.M. on 04/11/2018 1:24 PM Dictated By: PADDY WILSON DO 1324 COPY TO: SARAH MAXWELL MD Total [id number] 12:42:00* Test Item Value Reference Range Interpretation Comments Total Bilirubin (test code = 1975-2) 1.2 0.2-1.2 [facility] [id number] 12:42:00* Test Item Value Reference Range Interpretation Comments Direct Bilirubin (test code = 43346-1) 0.5 0.0-0.5 [facility] Amino Transf (AST/SGOT) 2017-08-25 12:42:00* Test Item Value Reference Range Interpretation Comments Aspartate Amino Transf (AST/SGOT) (test code = Aspartate Amino Transf (AST/SGOT)) 22 5-34 [facility] Paso[facility]anine Aminotransferase (ALT/SGPT) 2017-08-25 12:42:00* Test Item Value Reference Range Interpretation Comments Alanine Aminotransferase (ALT/SGPT) (test code = 1742-6) 16 0-55 [facility] [id number] 12:42:00* Test Item Value Reference Range Interpretation Comments Total Protein (test code = 2885-2) 8.6 6.5-8.1 H [facility] PasoAlbumin2018-03-15 12:42:00* Test Item Value Reference Range Interpretation Comments Albumin (test code = 1751-7) 4.2 3.5-5.0 [facility] PasoAlkaline [id number] 12:42:00* Test Item Value Reference Range Interpretation Comments Alkaline Phosphatase (test code = 6768-6) 107 40-150 [facility] [id number] 12:29:00* Test Item Value Reference Range Interpretation Comments Sodium Level (test code = 2951-2) 140 136-145 [facility] Paso[facility]assium [id number] 12:29:00* Test Item Value Reference Range Interpretation Comments Potassium Level (test code = 2823-3) 4.2 3.5-5.1 [facility] PasoChloride Zpjhd0655-03-94 12:29:00* Test Item Value Reference Range Interpretation Comments Chloride Level (test code = 2075-0) 104 98-107 [facility] PasoCarbon Dioxide [id number] 12:29:00* Test Item Value Reference Range Interpretation Comments Carbon Dioxide Level (test code = 2028-9) 25 22-29 [facility] PasoAnion [id number] 12:29:00* Test Item Value Reference Range Interpretation Comments Anion Gap (test code = 20833-4) 15.2 8-16 [facility] PasoBlood Urea [id number] 12:29:00* Test Item Value Reference Range Interpretation Comments Blood Urea Nitrogen (test code = 3094-0) 22 7-26 [facility] PasoCreatinine2018-03-15 12:29:00* Test Item Value Reference Range Interpretation Comments Creatinine (test code = 2160-0) 1.55 0.72-1.25 H [facility] PasoBUN/Creatinine Llxmj4306-41-28 12:29:00* Test Item Value Reference Range Interpretation Comments BUN/Creatinine Ratio (test code = 3097-3) 14 6-25 [facility] PasoEstimat Glomerular Filtration Rate 2017-08-25 12:29:00* Test Item Value Reference Range Interpretation Comments Estimat Glomerular Filtration Rate (test code = 84759-5) 44 >60 L Ranges were taken from the National Kidney Disease Education Program and the [facility] literature.Reference ranges:60 or greater: Ijjila38-15 ( for 3 consecutive months): Chronic kidney disease 15 or less: Kidney failureFoundation Surgical Hospital of El PasoGlucose Ygzrw8969-15-21 12:29:00* Test Item Value Reference Range Interpretation Comments Glucose Level (test code = YSV7783) 131 74-118 H [facility] PasoCalcium Tlysp9849-63-35 12:29:00* Test Item Value Reference Range Interpretation Comments Calcium Level (test code = 49071-0) 9.4 8.4-10.2 [facility] PasoWhite Blood Ginjy7343-55-42 12:13:00* Test Item Value Reference Range Interpretation Comments White Blood Count (test code = 6690-2) 7.39 4.8-10.8 [facility] PasoRed Blood Pcgdo8216-26-69 12:13:00* Test Item Value Reference Range Interpretation Comments Red Blood Count (test code = 789-8) 4.61 4.3-5.7 [facility]:13:[facility]* Test Item Value Reference Range Interpretation Comments Hemoglobin (test code = 11083-5) 14.3 14.0-18.0 [facility]ematocrit2018-03-15 12:13:00* Test Item Value Reference Range Interpretation Comments Hematocrit (test code = 4544-3) 42.6 38.2-49.6 [facility] Corpuscular [id number] 12:13:00* Test Item Value Reference Range Interpretation Comments Mean Corpuscular Volume (test code = 787-2) 92.4 81-99 [facility] Corpuscular [id number] 12:13:00* Test Item Value Reference Range Interpretation Comments Mean Corpuscular Hemoglobin (test code = 785-6) 31.0 28-32 [facility] Corpuscular Hemoglobin Concent 2017-08-25 12:13:00* Test Item Value Reference Range Interpretation Comments Mean Corpuscular Hemoglobin Concent (test code = 786-4) 33.6 31-35 [facility] PasoRed Cell Distribution [id number] 12:13:00* Test Item Value Reference Range Interpretation Comments Red Cell Distribution Width (test code = 35872-0) 14.2 11.7 -14.4 [facility]Platelet [id number] 12:13:00* Test Item Value Reference Range Interpretation Comments Platelet Count (test code = 777-3) 100 140-360 L [facility]Neutrophils (%) (Auto)2017-08-25 12:13:00 * Test Item Value Reference Range Interpretation Comments Neutrophils (%) (Auto) (test code = 74893-5) 63.0 38.7-80.0 [facility] PasoLymphocytes (%) (Auto)2017-08-25 12:13:00 * Test Item Value Reference Range Interpretation Comments Lymphocytes (%) (Auto) (test code = 736-9) 27.1 18.0-39.1 [facility]ocytes (%) (Auto)2017-08-25 12:13:00* Test Item Value Reference Range Interpretation Comments Monocytes (%) (Auto) (test code = 5905-5) 8.3 4.4-11.3 [facility]osin[facility] (%) (Auto)2017-08-25 12:13:00 * Test Item Value Reference Range Interpretation Comments Eosinophils (%) (Auto) (test code = 713-8) 0.9 0.0-6.0 [facility] (%) (Auto)2017-08-25 12:13:00* Test Item Value Reference Range Interpretation Comments Basophils (%) (Auto) (test code = 706-2) 0.4 0.0-1.0 [facility] PasoIM GRANULOCYTES %2017-08-25 12:13:00* Test Item Value Reference Range Interpretation Comments IM GRANULOCYTES % (test code = IM GRANULOCYTES %) 0.3 0.0- 1.0 [facility]Neutrophils # (Auto)2017-08-25 12:13:00* Test Item Value Reference Range Interpretation Comments Neutrophils # (Auto) (test code = 751-8) 4.7 2.1-6.9 [facility] PasoLymphocytes # (Auto)2017-08-25 12:13:00* Test Item Value Reference Range Interpretation Comments Lymphocytes # (Auto) (test code = 91691-6) 2.0 1.0-3.2 [facility]Monocytes # (Auto)2017-08-25 12:13:00* Test Item Value Reference Range Interpretation Comments Monocytes # (Auto) (test code = 742-7) 0.6 0.2-0.8 [facility]Eosinophils # (Auto)2017-08-25 12:13:00* Test Item Value Reference Range Interpretation Comments Eosinophils # (Auto) (test code = 711-2) 0.1 0.0-0.4 [facility]ophils # (Auto)2017-08-25 12:13:00* Test Item Value Reference Range Interpretation Comments Basophils # (Auto) (test code = 704-7) 0.0 0.0-0.1 [facility] PasoAbsolute Immature Granulocyte (auto 2017-08-25 12:13:00* Test Item Value Reference Range Interpretation Comments Absolute Immature Granulocyte (auto (shanda t code = Absolute Immature Granulocyte (auto) 0.02 0-0.1 [facility] [address] [place] [address] Patient Name: SHAKILA SYLVESTER MR #: [id number] : 1940 Age/Sex: 76/M Req #: [id number] Adm Physician: Ordered by: SARAH MAXWELL MD Report #: [id number] Location: DX Room/Bed: Procedure: DX/SMALL BOWEL SERIES Exa m Date: 11/10/17 Exam Time: 0800 REPORT STATUS: Signed PROCEDURE: SMALL BOWEL SERIES INDICATION: Abdominal bloating; p ain COMPARISON: None. TECHNIQUE: Routine single contrast small bowel fol low through performed through 60 minutes. Spot images were obtained. Fluorosc opy time: 0.5 minutes. Cumulative air kerma: 26.8 mGy FINDINGS: Small bowel caliber, mucosal contour and transit time are normal. No conspicuous p olyp, strictures or fistula. Focal evaluation of a patient reported "knot" in the abdomen is also unremarkable under fluoroscopy, without regional small or large bowel abnormality. CONCLUSION: Normal small bowel follow-thr ough. Dictated by: Kaylee Loya M.D. on 11/10/2017 at 12:00 Electronically approved by: Kaylee Loya M.D. on 11/10/2017 at 12:00 Dictated By: KAYLEE LOYA MD 1200 Transcribed By: JESSICA on 11/10/17 1200 COPY TO: SARAH MAXWELL MD FOOT RIGHT COMPLETE [place] [address] Patient Name: SHAKILA SYLVESTER MR #: [id number] : 1940 Age/Sex: 76/M Req #: [id number] Adm Physician: Ordered by: CARMEN WILLARD MD Report #: [id number] Location: ER Room/Bed: Procedure: [id number] DX/FOOT RIGHT COMPLETE Exam Date: 07/27/17 Exam Time: 08 REPORT STATUS: Signed PROCEDURE: X-RAY RIGHT FOOT, COMPLETE COMPARISON: None. INDICATIONS: RIGHT FOOT PAIN FINDINGS: No acute, displaced fractu re or dislocation. Slight deformities of the second and third metatarsal diap hyses likely reflect sequela of remote trauma. Appropriate alignment between the medial cuneiform and second metatarsal base in keeping with an intact Lis franc ligament. The joint spaces are well-maintained. Minimal degenerative po sterior calcaneal spur. No focal soft tissue abnormalities. CONCLUSI ON: No acute osseous abnormality. Dictated by: Francesca Owens M.D. on 07/27 at 9:03 Electronically approved by: Francesca Owens M.D. on 07/27/2017 at 9:03 Dictated By: FRANCESCA OWENS MD 0903 Transcribed By: JESSICA on 07/27/17 0903 COPY TO: CARMEN WILLARD MD
[2020-01-13 12:37] LABS: ALBUMIN 3.5 g/dL (3.5-5.0); ALBUMIN/GLOBULIN RATIO 0.9 (0.8-2.0); ANION GAP 15.7 mmol/L (8-16); CALCIUM 8.3 mg/dL (8.4-10.2); CREATININE, SERUM 1.89 mg/dL (0.72-1.25); POTASSIUM 4.7 mmol/L (3.5-5.1)
[2020-01-13 12:43] LABS: CREATINE KINASE MB 0.8 ng/mL (0-5.0)
[2020-01-13] MEDS ORDERED: REGLAN10 MG PO (13:15)
[2020-01-13] MEDS ORDERED: MIRALAX17 GM PO (13:19)
== END 2020-01-13 13:36 | disposition home or self-care (01) ==
LOC: FSED 12:10
DX: U07.1 COVID-19 (principal); R53.1 Weakness; I10 Essential (primary) hypertension; I50.9 Heart failure, unspecified; M10.9 Gout, unspecified; I25.2 Old myocardial infarction
CPT/HCPCS: 36415; 80053; 82550; 82553; 83690; 84484; 85025; 93005; 99283; U0002